=== PATIENT | female | born 1945 | race Caucasian/White ===

== ENCOUNTER 2018-04-04 11:27 | Emergency (ER) | payer MEDICARE, MEDICAID ==
[~2018-04-04] VITALS: Ht 147.3 cm; Wt 62.5 kg
[2018-04-04 13:35] LABS: BASOPHILS % 0.6 % (0.0-2.0); EOSINOPHILS % 2.2 % (0.0-5.0); HEMATOCRIT. 28.2 % (36.0-48.0); HEMOGLOBIN. 9.8 g/dL (12.0-16.0); LYMPHOCYTES % 31.7 % (20.0-50.0); MEAN CORPUSCULAR HEMOGLOBIN 31.3 pg (28.0-32.0); MEAN CORPUSCULAR VOLUME 89.9 fL (81.0-99.0); MEAN PLATELET VOLUME 7.7 fl (7.4-10.4); MONOCYTES % 6.7 % (2.0-8.0); NEUTROPHILS % 58.8 % (40.0-76.0); PLATELET 282 x1000/uL (130-400); RED BLOOD CELL COUNT 3.14 mill/uL (4.2-5.4); RED CELL DISTRIBUTION WIDTH 14.3 % (11.6-14.6)
[2018-04-04 13:43] LABS: PARTIAL THROMBOPLASTIN TIME 29.2 sec (23.4-31.0); PROTHROMBIN TIME 10.2 sec (9.1-11.1)
[2018-04-04 13:46] LABS: CHLORIDE 106 mEq/L (98-107)
[2018-04-04 18:35] VITALS: BP 160/67
== END 2018-04-04 18:38 | disposition home or self-care (01) ==
LOC: ER 13:10 → EDBEDREQ 13:14 → ER 18:38 → CANBEDREQ 18:45
DX: D64.9 Anemia, unspecified (principal); N28.9 Disorder of kidney and ureter, unspecified; R53.1 Weakness; R06.02 Shortness of breath; E11.9 Type 2 diabetes mellitus without complications; I10 Essential (primary) hypertension; Z98.890 Other specified postprocedural states
CPT/HCPCS: 36415; 71045; 83880; 84484; 86850; 86900; 93005; 99285

== ENCOUNTER 2022-12-24 21:10 | Inpatient (IN) | payer MEDICARE, MEDICAID ==
[~2022-12-24] VITALS: Ht 152.4 cm; Wt 61.2 kg
[~2022-12-24 21:10] MED LIST: ASPI-1160 MT; ATOR-2 PO; CARV3.1242 PO; COR3 PO; FURO80TA3 MT; INSU100I24 SQ; ISOS30TA91 MT; OMEP20CA14 PO; PLET5 MT; SITA25TA3 MT; T3 PO
[2022-12-24 21:15] VITALS: BP 130/73; PULSE 76; RESP 20; TEMP 97.7
[2022-12-24 22:00] VITALS: BP 130/73; PULSE 76; RESP 20; TEMP 97.7
[2022-12-24] MEDS ORDERED: MORPHINE SULFATE 2 MG/ML CPJ (NOT FOR IM USE) IV PRN (23:45)
[2022-12-25] MEDS ORDERED: ONDANSETRON HCL 4MG/2ML INJ IV PRN
[2022-12-25] MEDS ORDERED: DEXTROSE 50% WATER 50ML SYRINGE IV PRN
[2022-12-25] MEDS ORDERED: NALOXONE HCL 0.4MG/ML VIAL IV PRN (00:15)
[2022-12-25] MEDS ORDERED: SODIUM CHLORIDE 0.9% 250 ML IV NR ×2 (00:15→22:50)
[2022-12-25] MEDS: BLOOD SUGAR DIAGNOSTIC STRIP TEST SCH ×4 (06:01→21:25)
[2022-12-25] MEDS: INSULIN LISPRO 100 UNITS/ML SUBCUT SCH ×5 (06:07→21:00)
[2022-12-25 08:00] VITALS: BP 136/51; PULSE 77; RESP 17; TEMP 97.6
[2022-12-25 08:16] LABS: CHLORIDE 106 mEq/L (98-107); INDEX HEMOLYSI 1 (1-3); INDEX ICTERIC 1 (1-4); INDEX LIPEMIC 1 (1-3); POTASSIUM 4.3 mEq/L (3.5-5.1); SODIUM 135 mEq/L (136-145)
[2022-12-25 08:27] LABS: ALANINE AMINOTRANSFERASE 18 IU/L (13-61); ALBUMIN 1.7 g/dL (3.4-5.0); ASPARTATE AMINOTRANSFERASE 32 IU/L (15-37); BILIRUBIN TOTAL 0.9 mg/dL (0.1-1.0); CALCIUM 8.3 mg/dL (8.5-10.1); CARBON DIOXIDE 25 mEq/L (21-32); CREATININE 2.5 mg/dL (0.6-1.3); GLUCOSE 153 mg/dL (70-105); PROTEIN TOTAL 6.3 g/dL (6.0-8.3); UREA NITROGEN BLOOD 37 mg/dL (7-21)
[2022-12-25 08:30] LABS: BASOPHILS % 1.4 % (0.0-2.0); DIFFERENTIAL COMMENT 0; EOSINOPHILS % 1.5 % (0.0-5.0); HEMATOCRIT. 24.4 % (36.0-48.0); HEMOGLOBIN. 8.6 g/dL (12.0-16.0); LYMPHOCYTES % 14.6 % (20.0-50.0); MEAN CORPUSCULAR HEMOGLOBIN 36.2 pg (28.0-32.0); MEAN CORPUSCULAR HGB CONC 35.3 g/dL (31.0-37.0); MEAN CORPUSCULAR VOLUME 102.7 fL (81.0-99.0); MEAN PLATELET VOLUME 7.8 fl (7.4-10.4); MONOCYTES % 10.8 % (2.0-8.0); NEUTROPHILS % 71.7 % (40.0-76.0); PLATELET 322 x1000/uL (130-400); RED BLOOD CELL COUNT 2.38 mill/uL (4.2-5.4); RED CELL DISTRIBUTION WIDTH 20.7 % (11.6-14.6); WHITE BLOOD COUNT 6.7 x1000/uL (4.5-11.0)
[2022-12-25] MEDS ORDERED: HEPARIN 100 UNITS/1 ML VIAL IVF PRN (09:00)
[2022-12-25] MEDS ORDERED: ASCORBIC ACID 250 MG TABLET PO SCH (09:00)
[2022-12-25] MEDS: ZINC SULFATE 220 MG ( 50 ) CAPSULE PO SCH (09:19)
[2022-12-25] MEDS: FOLIC ACID/VITAMIN B COMP W-C TABLET PO SCH (09:19)
[2022-12-25] MEDS: DOCUSATE SODIUM 100MG CAPSULE PO SCH (09:20)
[2022-12-25] MEDS ORDERED: ASCORBIC ACID 500 MG TABLET PO NR (10:00)
[2022-12-25] MEDS: ASPIRIN 81MG TABLET PO SCH (10:25)
[2022-12-25] MEDS: INSULIN GLARGINE 100 UNITS/ML SUBCUT SCH (10:57)
[2022-12-25] MEDS ORDERED: ONDANSETRON HCL 4MG TABLET PO PRN (11:30)
[2022-12-25 20:00] VITALS: BP_SYST 125; BP_SYST 159; BP_DIAS 53; BP_DIAS 79; PULSE 68; RESP 20; TEMP 97.5; TEMP 97.7
[2022-12-25] MEDS ORDERED: GABAPENTIN 300MG CAPSULE PO SCH (21:00)
[2022-12-25] MEDS ORDERED: EPOETIN ALFA-EPBX 4,000 UNIT/ML VIAL SUBCUT SCH ×2 (21:00)
[2022-12-25] MEDS: GABAPENTIN 100MG CAPSULE PO SCH (21:04)
[2022-12-25] MEDS: FAMOTIDINE 20MG TABLET PO SCH (21:04)
[2022-12-25] MEDS: EPOETIN ALFA-EPBX 4,000 UNIT/ML VIAL SUBCUT SCH (21:09)
[2022-12-26] VITALS (12 sets, daily range): BP systolic 90–142; BP diastolic 41–68; PULSE 67–88; RESP 16–18; TEMP 96.7–97.7
[2022-12-26] MEDS: BLOOD SUGAR DIAGNOSTIC STRIP TEST SCH ×4 (05:18→21:00)
[2022-12-26 06:24] LABS: BASOPHILS % 1.7 % (0.0-2.0); DIFFERENTIAL COMMENT 0; EOSINOPHILS % 3.6 % (0.0-5.0); HEMATOCRIT. 26.8 % (36.0-48.0); HEMOGLOBIN. 9.4 g/dL (12.0-16.0); LYMPHOCYTES % 21.1 % (20.0-50.0); MEAN CORPUSCULAR VOLUME 103.1 fL (81.0-99.0); MEAN PLATELET VOLUME 7.9 fl (7.4-10.4); MONOCYTES % 13.6 % (2.0-8.0); PLATELET 331 x1000/uL (130-400); RED CELL DISTRIBUTION WIDTH 20.9 % (11.6-14.6); WHITE BLOOD COUNT 6.3 x1000/uL (4.5-11.0)
[2022-12-26 06:38] LABS: POTASSIUM 4.3 mEq/L (3.5-5.1)
[2022-12-26 06:45] LABS: CALCIUM 8.1 mg/dL (8.5-10.1); CREATININE 3.2 mg/dL (0.6-1.3)
[2022-12-26] MEDS: FOLIC ACID/VITAMIN B COMP W-C TABLET PO SCH (08:10)
[2022-12-26] MEDS: ZINC SULFATE 220 MG ( 50 ) CAPSULE PO SCH (08:10)
[2022-12-26] MEDS: DOCUSATE SODIUM 100MG CAPSULE PO SCH (08:10)
[2022-12-26] MEDS: ASCORBIC ACID 250 MG TABLET PO SCH (08:10)
[2022-12-26] MEDS: ASPIRIN 81MG TABLET PO SCH (08:10)
[2022-12-26] MEDS: INSULIN LISPRO 100 UNITS/ML SUBCUT SCH ×4 (08:37→21:00)
[2022-12-26] MEDS: INSULIN GLARGINE 100 UNITS/ML SUBCUT SCH (10:35)
[2022-12-26 17:49] LABS: HEPATITIS B SURFACE ANTIGEN NEGATIVE
[2022-12-26 18:17] LABS: HEPATITIS B CORE AB IGM NEGATIVE; HEPATITIS C VIR.AB 0.13 INDEXVAL (0.00-0.80)
[2022-12-26 18:18] LABS: HEPATITIS A AB IGM NEGATIVE (NEGATIVE)
[2022-12-26] MEDS: GABAPENTIN 100MG CAPSULE PO SCH (21:27)
[2022-12-26] MEDS: ACETAMINOPHEN 325MG TABLET PO PRN (21:27)
[2022-12-26] MEDS: LOPERAMIDE HCL 2MG CAPSULE PO PRN (21:58)
[2022-12-27] MEDS: VANCOMYCIN 1000MG/20ML ORAL SOLN PO SCH ×5 (06:19→17:49)
[2022-12-27] MEDS: BLOOD SUGAR DIAGNOSTIC STRIP TEST SCH ×2 (06:23→17:00)
[2022-12-27 08:00] VITALS: BP 126/52; PULSE 69; RESP 18; TEMP 96.8
[2022-12-27] MEDS: ASPIRIN 81MG TABLET PO SCH (08:37)
[2022-12-27] MEDS: ZINC SULFATE 220 MG ( 50 ) CAPSULE PO SCH (08:37)
[2022-12-27] MEDS: FOLIC ACID/VITAMIN B COMP W-C TABLET PO SCH (08:37)
[2022-12-27] MEDS: ASCORBIC ACID 250 MG TABLET PO SCH (08:37)
[2022-12-27] MEDS: INSULIN GLARGINE 100 UNITS/ML SUBCUT SCH (10:29)
[2022-12-27] MEDS: INSULIN LISPRO 100 UNITS/ML SUBCUT SCH (17:00)
[2022-12-27 20:00] VITALS: BP 111/43; PULSE 68; RESP 14; TEMP 97.1
[2022-12-27] MEDS: FAMOTIDINE 20MG TABLET PO SCH (21:53)
[2022-12-27] MEDS: GABAPENTIN 100MG CAPSULE PO SCH (21:54)
[2022-12-28] VITALS (10 sets, daily range): BP systolic 108–151; BP diastolic 44–120; PULSE 65–96; RESP 17–20; TEMP 97–97.8
[2022-12-28] MEDS: VANCOMYCIN 1000MG/20ML ORAL SOLN PO SCH ×4 (06:21→17:43)
[2022-12-28 06:52] LABS: CALCIUM 7.7 mg/dL (8.5-10.1); POTASSIUM 4.6 mEq/L (3.5-5.1)
[2022-12-28 06:55] LABS: BASOPHILS % 1.2 % (0.0-2.0); DIFFERENTIAL COMMENT 0; EOSINOPHILS % 2.2 % (0.0-5.0); HEMATOCRIT. 24.7 % (36.0-48.0); HEMOGLOBIN. 8.7 g/dL (12.0-16.0); LYMPHOCYTES % 19.8 % (20.0-50.0); MEAN CORPUSCULAR HEMOGLOBIN 36.1 pg (28.0-32.0); MEAN CORPUSCULAR HGB CONC 35.1 g/dL (31.0-37.0); MEAN CORPUSCULAR VOLUME 102.9 fL (81.0-99.0); MEAN PLATELET VOLUME 7.8 fl (7.4-10.4); MONOCYTES % 10.4 % (2.0-8.0); NEUTROPHILS % 66.4 % (40.0-76.0); PLATELET 288 x1000/uL (130-400); RED BLOOD CELL COUNT 2.41 mill/uL (4.2-5.4); RED CELL DISTRIBUTION WIDTH 20.7 % (11.6-14.6); WHITE BLOOD COUNT 6.9 x1000/uL (4.5-11.0)
[2022-12-28 06:58] LABS: CREATININE 3.4 mg/dL (0.6-1.3); PHOSPHORUS 4.2 mg/dL (2.5-4.9)
[2022-12-28] MEDS: INSULIN LISPRO 100 UNITS/ML SUBCUT SCH ×2 (08:00→17:38)
[2022-12-28] MEDS: BLOOD SUGAR DIAGNOSTIC STRIP TEST SCH ×2 (08:00→17:00)
[2022-12-28] MEDS: ZINC SULFATE 220 MG ( 50 ) CAPSULE PO SCH (08:57)
[2022-12-28] MEDS: ASCORBIC ACID 250 MG TABLET PO SCH (08:57)
[2022-12-28] MEDS: FOLIC ACID/VITAMIN B COMP W-C TABLET PO SCH (08:57)
[2022-12-28] MEDS: ASPIRIN 81MG TABLET PO SCH (08:57)
[2022-12-28] MEDS: INSULIN GLARGINE 100 UNITS/ML SUBCUT SCH (10:50)
[2022-12-28] MEDS: EPOETIN ALFA-EPBX 4,000 UNIT/ML VIAL SUBCUT SCH (21:21)
[2022-12-28] MEDS: GABAPENTIN 100MG CAPSULE PO SCH (21:21)
[2022-12-28] MEDS: TRAMADOL 50MG TABLET PO PRN (21:23)
[2022-12-29] MEDS: VANCOMYCIN 1000MG/20ML ORAL SOLN PO SCH ×4 (00:56→17:03)
[2022-12-29] MEDS: ACETAMINOPHEN 325MG TABLET PO PRN (01:43)
[2022-12-29] MEDS: BLOOD SUGAR DIAGNOSTIC STRIP TEST SCH ×2 (06:48→16:52)
[2022-12-29] MEDS: INSULIN LISPRO 100 UNITS/ML SUBCUT SCH ×2 (06:56→16:52)
[2022-12-29 08:00] VITALS: BP 127/52; PULSE 75; RESP 18; TEMP 97.8
[2022-12-29] MEDS: FOLIC ACID/VITAMIN B COMP W-C TABLET PO SCH (08:38)
[2022-12-29] MEDS: ASPIRIN 81MG TABLET PO SCH (08:38)
[2022-12-29] MEDS: ZINC SULFATE 220 MG ( 50 ) CAPSULE PO SCH (08:38)
[2022-12-29] MEDS: ASCORBIC ACID 250 MG TABLET PO SCH (08:38)
[2022-12-29] MEDS: INSULIN GLARGINE 100 UNITS/ML SUBCUT SCH (09:38)
[2022-12-29 20:00] VITALS: BP 116/46; PULSE 72; RESP 18; TEMP 99.7
[2022-12-29] MEDS: GABAPENTIN 100MG CAPSULE PO SCH (20:55)
[2022-12-29] MEDS: TRAMADOL 50MG TABLET PO PRN (20:56)
[2022-12-29] MEDS: FAMOTIDINE 20MG TABLET PO SCH (20:56)
[2022-12-30] VITALS (11 sets, daily range): BP systolic 95–131; BP diastolic 48–62; PULSE 64–72; RESP 16–18; TEMP 97–99
[2022-12-30] MEDS: VANCOMYCIN 1000MG/20ML ORAL SOLN PO SCH ×4 (02:50→18:19)
[2022-12-30] MEDS: BLOOD SUGAR DIAGNOSTIC STRIP TEST SCH ×2 (07:26→17:55)
[2022-12-30 07:28] LABS: POTASSIUM 4.7 mEq/L (3.5-5.1)
[2022-12-30 07:34] LABS: BASOPHILS % 1.1 % (0.0-2.0); DIFFERENTIAL COMMENT 0; EOSINOPHILS % 1.2 % (0.0-5.0); HEMATOCRIT. 26.4 % (36.0-48.0); LYMPHOCYTES % 16.8 % (20.0-50.0); MEAN CORPUSCULAR HEMOGLOBIN 34.6 pg (28.0-32.0); MEAN CORPUSCULAR VOLUME 101.9 fL (81.0-99.0); MEAN PLATELET VOLUME 7.7 fl (7.4-10.4); NEUTROPHILS % 71.9 % (40.0-76.0); PLATELET 281 x1000/uL (130-400); RED BLOOD CELL COUNT 2.59 mill/uL (4.2-5.4); RED CELL DISTRIBUTION WIDTH 21.1 % (11.6-14.6); WHITE BLOOD COUNT 8.8 x1000/uL (4.5-11.0)
[2022-12-30 07:36] LABS: CALCIUM 7.9 mg/dL (8.5-10.1); CREATININE 3.5 mg/dL (0.6-1.3); PHOSPHORUS 4.3 mg/dL (2.5-4.9)
[2022-12-30] MEDS: INSULIN LISPRO 100 UNITS/ML SUBCUT SCH ×2 (08:00→17:30)
[2022-12-30] MEDS: ACETAMINOPHEN 325MG TABLET PO PRN (10:32)
[2022-12-30] MEDS: ASCORBIC ACID 250 MG TABLET PO SCH (10:33)
[2022-12-30] MEDS: ZINC SULFATE 220 MG ( 50 ) CAPSULE PO SCH (10:33)
[2022-12-30] MEDS: FOLIC ACID/VITAMIN B COMP W-C TABLET PO SCH (10:33)
[2022-12-30] MEDS: ASPIRIN 81MG TABLET PO SCH (10:33)
[2022-12-30] MEDS: TRAMADOL 50MG TABLET PO PRN (18:32)
[2022-12-30] MEDS: GABAPENTIN 100MG CAPSULE PO SCH (23:14)
[2022-12-30] MEDS: EPOETIN ALFA-EPBX 4,000 UNIT/ML VIAL SUBCUT SCH (23:14)
[2022-12-31] MEDS: VANCOMYCIN 1000MG/20ML ORAL SOLN PO SCH ×4 (00:28→17:14)
[2022-12-31] MEDS: BLOOD SUGAR DIAGNOSTIC STRIP TEST SCH ×2 (06:33→17:13)
[2022-12-31] MEDS: INSULIN LISPRO 100 UNITS/ML SUBCUT SCH ×2 (06:34→17:00)
[2022-12-31 08:00] VITALS: BP 132/50; PULSE 71; RESP 18; TEMP 97.3
[2022-12-31] MEDS: FOLIC ACID/VITAMIN B COMP W-C TABLET PO SCH (08:41)
[2022-12-31] MEDS: ASPIRIN 81MG TABLET PO SCH (08:41)
[2022-12-31] MEDS: ASCORBIC ACID 250 MG TABLET PO SCH (08:41)
[2022-12-31] MEDS: ZINC SULFATE 220 MG ( 50 ) CAPSULE PO SCH (08:41)
[2022-12-31] MEDS: ACETAMINOPHEN 325MG TABLET PO PRN (09:10)
[2022-12-31 20:09] VITALS: BP 101/49; PULSE 91; RESP 20; TEMP 96.9
[2022-12-31] MEDS: GABAPENTIN 100MG CAPSULE PO SCH (20:52)
[2022-12-31] MEDS: FAMOTIDINE 20MG TABLET PO SCH (20:52)
[2023-01-01] VITALS (8 sets, daily range): BP systolic 109–138; BP diastolic 48–82; PULSE 62–82; RESP 16–20; TEMP 97.3–98.6
[2023-01-01] MEDS: BLOOD SUGAR DIAGNOSTIC STRIP TEST SCH ×2 (06:54→17:11)
[2023-01-01] MEDS: INSULIN LISPRO 100 UNITS/ML SUBCUT SCH ×2 (06:54→17:13)
[2023-01-01 08:02] LABS: BASOPHILS % 1.2 % (0.0-2.0); DIFFERENTIAL COMMENT 0; EOSINOPHILS % 1.8 % (0.0-5.0); HEMATOCRIT. 24.3 % (36.0-48.0); HEMOGLOBIN. 8.7 g/dL (12.0-16.0); LYMPHOCYTES % 19.3 % (20.0-50.0); MEAN CORPUSCULAR HEMOGLOBIN 36.6 pg (28.0-32.0); MEAN CORPUSCULAR HGB CONC 35.8 g/dL (31.0-37.0); MEAN CORPUSCULAR VOLUME 102.2 fL (81.0-99.0); MEAN PLATELET VOLUME 7.8 fl (7.4-10.4); MONOCYTES % 10.1 % (2.0-8.0); NEUTROPHILS % 67.6 % (40.0-76.0); PLATELET 268 x1000/uL (130-400); RED BLOOD CELL COUNT 2.37 mill/uL (4.2-5.4); RED CELL DISTRIBUTION WIDTH 19.4 % (11.6-14.6); WHITE BLOOD COUNT 7.5 x1000/uL (4.5-11.0)
[2023-01-01 08:40] LABS: POTASSIUM 4.6 mEq/L (3.5-5.1)
[2023-01-01 08:49] LABS: CALCIUM 7.9 mg/dL (8.5-10.1); CREATININE 3.5 mg/dL (0.6-1.3); PHOSPHORUS 4.5 mg/dL (2.5-4.9)
[2023-01-01] MEDS: ASCORBIC ACID 250 MG TABLET PO SCH (08:58)
[2023-01-01] MEDS: ZINC SULFATE 220 MG ( 50 ) CAPSULE PO SCH (08:58)
[2023-01-01] MEDS: ASPIRIN 81MG TABLET PO SCH (08:58)
[2023-01-01] MEDS: FOLIC ACID/VITAMIN B COMP W-C TABLET PO SCH (08:58)
[2023-01-01] MEDS ORDERED: NALOXONE HCL 0.4MG/ML VIAL IV PRN (14:00)
[2023-01-01] MEDS: ACETAMINOPHEN 325MG TABLET PO PRN (21:45)
[2023-01-01] MEDS: GABAPENTIN 100MG CAPSULE PO SCH (21:46)
[2023-01-01] MEDS: EPOETIN ALFA-EPBX 4,000 UNIT/ML VIAL SUBCUT SCH (21:47)
[2023-01-02 06:44] LABS: BASOPHILS % 1.8 % (0.0-2.0); DIFFERENTIAL COMMENT 0; EOSINOPHILS % 2.1 % (0.0-5.0); HEMOGLOBIN. 8.8 g/dL (12.0-16.0); LYMPHOCYTES % 15.8 % (20.0-50.0); MEAN CORPUSCULAR HEMOGLOBIN 36.3 pg (28.0-32.0); MEAN CORPUSCULAR HGB CONC 35.2 g/dL (31.0-37.0); MEAN CORPUSCULAR VOLUME 103.2 fL (81.0-99.0); MEAN PLATELET VOLUME 7.6 fl (7.4-10.4); MONOCYTES % 9.7 % (2.0-8.0); NEUTROPHILS % 70.6 % (40.0-76.0); PLATELET 258 x1000/uL (130-400); RED BLOOD CELL COUNT 2.42 mill/uL (4.2-5.4); RED CELL DISTRIBUTION WIDTH 19.4 % (11.6-14.6); WHITE BLOOD COUNT 6.7 x1000/uL (4.5-11.0)
[2023-01-02 07:07] LABS: POTASSIUM 3.7 mEq/L (3.5-5.1)
[2023-01-02 07:11] LABS: CREATININE 2.9 mg/dL (0.6-1.3); PHOSPHORUS 3.7 mg/dL (2.5-4.9)
[2023-01-02] MEDS: ACETAMINOPHEN 325MG TABLET PO PRN ×3 (07:43→22:17)
[2023-01-02] MEDS: BLOOD SUGAR DIAGNOSTIC STRIP TEST SCH ×2 (07:49→17:00)
[2023-01-02] MEDS: INSULIN LISPRO 100 UNITS/ML SUBCUT SCH ×2 (07:49→18:25)
[2023-01-02 08:00] VITALS: BP 136/50; PULSE 78; RESP 18; TEMP 98
[2023-01-02] MEDS: ASCORBIC ACID 250 MG TABLET PO SCH (09:00)
[2023-01-02] MEDS: FOLIC ACID/VITAMIN B COMP W-C TABLET PO SCH (09:35)
[2023-01-02] MEDS: ZINC SULFATE 220 MG ( 50 ) CAPSULE PO SCH (09:36)
[2023-01-02] MEDS: ASPIRIN 81MG TABLET PO SCH (09:36)
[2023-01-02 20:00] VITALS: BP 124/43; PULSE 67; RESP 17; TEMP 97
[2023-01-02] MEDS: FAMOTIDINE 20MG TABLET PO SCH (21:54)
[2023-01-02] MEDS: GABAPENTIN 100MG CAPSULE PO SCH (21:55)
[2023-01-03 06:25] LABS: BASOPHILS % 1.8 % (0.0-2.0); DIFFERENTIAL COMMENT 0; EOSINOPHILS % 2.5 % (0.0-5.0); HEMATOCRIT. 25.5 % (36.0-48.0); HEMOGLOBIN. 8.8 g/dL (12.0-16.0); LYMPHOCYTES % 19.1 % (20.0-50.0); MEAN CORPUSCULAR HGB CONC 34.6 g/dL (31.0-37.0); MEAN PLATELET VOLUME 7.4 fl (7.4-10.4); MONOCYTES % 10.5 % (2.0-8.0); NEUTROPHILS % 66.1 % (40.0-76.0); PLATELET 265 x1000/uL (130-400); RED BLOOD CELL COUNT 2.45 mill/uL (4.2-5.4); RED CELL DISTRIBUTION WIDTH 19.8 % (11.6-14.6); WHITE BLOOD COUNT 6.7 x1000/uL (4.5-11.0)
[2023-01-03 06:33] LABS: POTASSIUM 3.7 mEq/L (3.5-5.1)
[2023-01-03 06:39] LABS: CALCIUM 7.9 mg/dL (8.5-10.1); CREATININE 3.6 mg/dL (0.6-1.3); PHOSPHORUS 4.7 mg/dL (2.5-4.9)
[2023-01-03] MEDS: ACETAMINOPHEN 325MG TABLET PO PRN (07:33)
[2023-01-03 07:52] VITALS: BP 125/50; PULSE 67; RESP 18; TEMP 97.5
[2023-01-03] MEDS: BLOOD SUGAR DIAGNOSTIC STRIP TEST SCH ×2 (08:00→17:13)
[2023-01-03] MEDS: INSULIN LISPRO 100 UNITS/ML SUBCUT SCH ×2 (08:00→17:39)
[2023-01-03] MEDS: FOLIC ACID/VITAMIN B COMP W-C TABLET PO SCH (09:14)
[2023-01-03] MEDS: ZINC SULFATE 220 MG ( 50 ) CAPSULE PO SCH (09:14)
[2023-01-03] MEDS: ASCORBIC ACID 250 MG TABLET PO SCH (09:14)
[2023-01-03] MEDS: ASPIRIN 81MG TABLET PO SCH (09:14)
[2023-01-03] MEDS: LOPERAMIDE HCL 2MG CAPSULE PO PRN (19:17)
[2023-01-03 20:18] VITALS: BP 101/49; PULSE 76; RESP 17; TEMP 97.1
[2023-01-03] MEDS: GABAPENTIN 100MG CAPSULE PO SCH (21:58)
[2023-01-04] VITALS (8 sets, daily range): BP systolic 117–131; BP diastolic 48–61; PULSE 62–74; RESP 16–19; TEMP 97.6–98.8
[2023-01-04 07:04] LABS: POTASSIUM 4.1 mEq/L (3.5-5.1)
[2023-01-04 07:12] LABS: CALCIUM 7.9 mg/dL (8.5-10.1); CREATININE 4.4 mg/dL (0.6-1.3)
[2023-01-04] MEDS: INSULIN LISPRO 100 UNITS/ML SUBCUT SCH ×2 (07:25→17:40)
[2023-01-04] MEDS: BLOOD SUGAR DIAGNOSTIC STRIP TEST SCH ×2 (08:02→17:12)
[2023-01-04] MEDS: ZINC SULFATE 220 MG ( 50 ) CAPSULE PO SCH (08:33)
[2023-01-04] MEDS: FOLIC ACID/VITAMIN B COMP W-C TABLET PO SCH (08:33)
[2023-01-04] MEDS: ASPIRIN 81MG TABLET PO SCH (08:33)
[2023-01-04] MEDS: ASCORBIC ACID 250 MG TABLET PO SCH (08:34)
[2023-01-04] MEDS: TRAMADOL 50MG TABLET PO PRN (08:48)
[2023-01-04] MEDS: FAMOTIDINE 20MG TABLET PO SCH (21:28)
[2023-01-04] MEDS: EPOETIN ALFA 4000UNITS/ML VIAL SUBCUT SCH (21:28)
[2023-01-04] MEDS: GABAPENTIN 100MG CAPSULE PO SCH (21:28)
[2023-01-04] MEDS: LOPERAMIDE HCL 2MG CAPSULE PO PRN (22:29)
[2023-01-04] MEDS: ACETAMINOPHEN 325MG TABLET PO PRN (23:37)
[2023-01-05] MEDS: BLOOD SUGAR DIAGNOSTIC STRIP TEST SCH ×2 (07:35→17:36)
[2023-01-05] MEDS: INSULIN LISPRO 100 UNITS/ML SUBCUT SCH ×2 (07:35→18:15)
[2023-01-05 08:00] VITALS: BP 125/48; PULSE 70; RESP 18; TEMP 97.3
[2023-01-05] MEDS: ZINC SULFATE 220 MG ( 50 ) CAPSULE PO SCH (09:37)
[2023-01-05] MEDS: FOLIC ACID/VITAMIN B COMP W-C TABLET PO SCH (09:37)
[2023-01-05] MEDS: ASPIRIN 81MG TABLET PO SCH (09:37)
[2023-01-05] MEDS: ASCORBIC ACID 250 MG TABLET PO SCH (09:38)
[2023-01-05 19:52] VITALS: BP 101/48; PULSE 56; RESP 17; TEMP 96.9
[2023-01-05] MEDS: GABAPENTIN 100MG CAPSULE PO SCH (20:17)
[2023-01-06] VITALS (11 sets, daily range): BP systolic 112–133; BP diastolic 49–59; PULSE 55–76; RESP 16–18; TEMP 97.1–98.4
[2023-01-06 06:11] LABS: BASOPHILS % 1.1 % (0.0-2.0); DIFFERENTIAL COMMENT 0; EOSINOPHILS % 1.4 % (0.0-5.0); HEMATOCRIT. 27.1 % (36.0-48.0); LYMPHOCYTES % 21.7 % (20.0-50.0); MEAN CORPUSCULAR HEMOGLOBIN 34.2 pg (28.0-32.0); MEAN CORPUSCULAR HGB CONC 33.1 g/dL (31.0-37.0); MEAN PLATELET VOLUME 7.2 fl (7.4-10.4); MONOCYTES % 9.7 % (2.0-8.0); NEUTROPHILS % 66.1 % (40.0-76.0); PLATELET 261 x1000/uL (130-400); RED BLOOD CELL COUNT 2.63 mill/uL (4.2-5.4); RED CELL DISTRIBUTION WIDTH 19.8 % (11.6-14.6); WHITE BLOOD COUNT 7.4 x1000/uL (4.5-11.0)
[2023-01-06] MEDS: INSULIN LISPRO 100 UNITS/ML SUBCUT SCH ×2 (08:00→16:08)
[2023-01-06] MEDS: BLOOD SUGAR DIAGNOSTIC STRIP TEST SCH ×2 (08:00→16:09)
[2023-01-06] MEDS: ASPIRIN 81MG TABLET PO SCH (08:26)
[2023-01-06] MEDS: ASCORBIC ACID 250 MG TABLET PO SCH (08:27)
[2023-01-06] MEDS: FOLIC ACID/VITAMIN B COMP W-C TABLET PO SCH (08:27)
[2023-01-06] MEDS: ZINC SULFATE 220 MG ( 50 ) CAPSULE PO SCH (08:27)
[2023-01-06 10:57] LABS: POTASSIUM 4.4 mEq/L (3.5-5.1)
[2023-01-06 11:02] LABS: CALCIUM 8.3 mg/dL (8.5-10.1); CREATININE 4.3 mg/dL (0.6-1.3); PHOSPHORUS 4.6 mg/dL (2.5-4.9)
[2023-01-06] MEDS: FAMOTIDINE 20MG TABLET PO SCH (21:41)
[2023-01-06] MEDS: GABAPENTIN 100MG CAPSULE PO SCH (21:41)
[2023-01-06] MEDS: EPOETIN ALFA 4000UNITS/ML VIAL SUBCUT SCH (21:42)
[2023-01-07] MEDS: BLOOD SUGAR DIAGNOSTIC STRIP TEST SCH ×2 (07:32→17:44)
[2023-01-07] MEDS: INSULIN LISPRO 100 UNITS/ML SUBCUT SCH ×2 (07:32→17:00)
[2023-01-07] MEDS: ASPIRIN 81MG TABLET PO SCH (07:56)
[2023-01-07] MEDS: FOLIC ACID/VITAMIN B COMP W-C TABLET PO SCH (07:56)
[2023-01-07] MEDS: ASCORBIC ACID 250 MG TABLET PO SCH (07:56)
[2023-01-07] MEDS: ZINC SULFATE 220 MG ( 50 ) CAPSULE PO SCH (07:56)
[2023-01-07 08:00] VITALS: BP 132/51; PULSE 74; RESP 18; TEMP 97.7
[2023-01-07] MEDS: ACETAMINOPHEN 325MG TABLET PO PRN (09:51)
[2023-01-07] MEDS: CEPHALEXIN 250MG CAPSULE PO SCH ×2 (11:30→23:09)
[2023-01-07] MEDS ORDERED: NALOXONE HCL 0.4MG/ML VIAL IV PRN (15:30)
[2023-01-07 20:00] VITALS: BP 135/50; PULSE 75; RESP 19; TEMP 100.8
[2023-01-07] MEDS: LINEZOLID 600MG TABLET PO SCH (21:12)
[2023-01-07] MEDS: GABAPENTIN 100MG CAPSULE PO SCH (21:15)
[2023-01-07] MEDS: TRAMADOL 50MG TABLET PO PRN (21:15)
[2023-01-08 08:00] VITALS: BP 136/52; PULSE 74; RESP 18; TEMP 97.8
[2023-01-08] MEDS: INSULIN LISPRO 100 UNITS/ML SUBCUT SCH ×2 (08:00→17:00)
[2023-01-08] MEDS: BLOOD SUGAR DIAGNOSTIC STRIP TEST SCH ×2 (08:00→17:00)
[2023-01-08 08:30] LABS: BASOPHILS % 1.2 % (0.0-2.0); DIFFERENTIAL COMMENT 0; EOSINOPHILS % 1.6 % (0.0-5.0); HEMATOCRIT. 26.2 % (36.0-48.0); HEMOGLOBIN. 9.1 g/dL (12.0-16.0); LYMPHOCYTES % 22.1 % (20.0-50.0); MEAN CORPUSCULAR HEMOGLOBIN 35.5 pg (28.0-32.0); MEAN CORPUSCULAR HGB CONC 34.7 g/dL (31.0-37.0); MEAN CORPUSCULAR VOLUME 102.2 fL (81.0-99.0); MEAN PLATELET VOLUME 7.8 fl (7.4-10.4); MONOCYTES % 11.6 % (2.0-8.0); NEUTROPHILS % 63.5 % (40.0-76.0); PLATELET 291 x1000/uL (130-400); RED BLOOD CELL COUNT 2.56 mill/uL (4.2-5.4); WHITE BLOOD COUNT 6.9 x1000/uL (4.5-11.0)
[2023-01-08 08:43] LABS: CALCIUM 8.2 mg/dL (8.5-10.1); POTASSIUM 4.7 mEq/L (3.5-5.1)
[2023-01-08 08:48] LABS: CREATININE 4.2 mg/dL (0.6-1.3)
[2023-01-08] MEDS: ASCORBIC ACID 250 MG TABLET PO SCH (09:00)
[2023-01-08] MEDS: LINEZOLID 600MG TABLET PO SCH ×2 (09:00→20:41)
[2023-01-08] MEDS: ZINC SULFATE 220 MG ( 50 ) CAPSULE PO SCH (09:00)
[2023-01-08] MEDS: ASPIRIN 81MG TABLET PO SCH (09:00)
[2023-01-08] MEDS: FOLIC ACID/VITAMIN B COMP W-C TABLET PO SCH (09:00)
[2023-01-08] MEDS: CEPHALEXIN 250MG CAPSULE PO SCH (11:30)
[2023-01-08] MEDS: INSULIN GLARGINE 100 UNITS/ML SUBCUT SCH (13:00)
[2023-01-08 17:00] VITALS: BP 133/60; PULSE 73; RESP 16; TEMP 98.3
[2023-01-08 18:00] VITALS: BP 130/59; PULSE 79; RESP 16
[2023-01-08 19:00] VITALS: BP 118/52; PULSE 69; RESP 16
[2023-01-08 20:00] VITALS: BP 134/54; PULSE 70; RESP 18; TEMP 97.9
[2023-01-08] MEDS: GABAPENTIN 100MG CAPSULE PO SCH (20:41)
[2023-01-08] MEDS: ACETAMINOPHEN 325MG TABLET PO PRN (20:41)
[2023-01-08] MEDS: FAMOTIDINE 20MG TABLET PO SCH (20:42)
[2023-01-08] MEDS ORDERED: EPOETIN ALFA-EPBX 10,000 UNIT/ML VIAL SUBCUT SCH (21:00)
[2023-01-08 21:04] LABS: HEPATITIS B SURFACE AB 50.8 mIU/mL
[2023-01-08 21:15] LABS: HEPATITIS B SURFACE ANTIGEN NEGATIVE
[2023-01-08 21:43] LABS: HEPATITIS B CORE AB IGM NEGATIVE
[2023-01-08 21:45] LABS: HEPATITIS A AB IGM NEGATIVE (NEGATIVE)
[2023-01-09] MEDS: CEPHALEXIN 250MG CAPSULE PO SCH ×3 (00:02→23:25)
[2023-01-09] MEDS: INSULIN LISPRO 100 UNITS/ML SUBCUT SCH ×2 (06:57→17:00)
[2023-01-09] MEDS: BLOOD SUGAR DIAGNOSTIC STRIP TEST SCH ×2 (06:57→17:00)
[2023-01-09 08:00] VITALS: BP 131/49; PULSE 68; RESP 17; TEMP 97.3
[2023-01-09] MEDS: FOLIC ACID/VITAMIN B COMP W-C TABLET PO SCH (08:54)
[2023-01-09] MEDS: ASPIRIN 81MG TABLET PO SCH (08:54)
[2023-01-09] MEDS: ASCORBIC ACID 250 MG TABLET PO SCH (08:54)
[2023-01-09] MEDS: LINEZOLID 600MG TABLET PO SCH ×2 (08:54→20:48)
[2023-01-09] MEDS: ZINC SULFATE 220 MG ( 50 ) CAPSULE PO SCH (08:54)
[2023-01-09] MEDS: INSULIN GLARGINE 100 UNITS/ML SUBCUT SCH (11:38)
[2023-01-09] MEDS: ACETAMINOPHEN 325MG TABLET PO PRN (17:20)
[2023-01-09 19:51] VITALS: BP 135/50; PULSE 73; RESP 20; TEMP 98.3
[2023-01-09] MEDS: GABAPENTIN 100MG CAPSULE PO SCH (20:48)
[2023-01-10] MEDS: ACETAMINOPHEN 325MG TABLET PO PRN ×3 (01:16→22:53)
[2023-01-10] MEDS: INSULIN LISPRO 100 UNITS/ML SUBCUT SCH ×2 (06:33→17:00)
[2023-01-10] MEDS: BLOOD SUGAR DIAGNOSTIC STRIP TEST SCH ×2 (06:33→17:00)
[2023-01-10 08:00] VITALS: BP 113/50; PULSE 66; RESP 18; TEMP 97.5
[2023-01-10] MEDS: FOLIC ACID/VITAMIN B COMP W-C TABLET PO SCH (08:49)
[2023-01-10] MEDS: ASPIRIN 81MG TABLET PO SCH (08:49)
[2023-01-10] MEDS: LINEZOLID 600MG TABLET PO SCH ×2 (08:49→20:57)
[2023-01-10] MEDS: ASCORBIC ACID 250 MG TABLET PO SCH (08:49)
[2023-01-10] MEDS: ZINC SULFATE 220 MG ( 50 ) CAPSULE PO SCH (08:49)
[2023-01-10] MEDS: INSULIN GLARGINE 100 UNITS/ML SUBCUT SCH (10:00)
[2023-01-10] MEDS: CEPHALEXIN 250MG CAPSULE PO SCH ×2 (10:48→22:53)
[2023-01-10] MEDS: LOPERAMIDE HCL 2MG CAPSULE PO PRN ×2 (10:49→21:00)
[2023-01-10] MEDS: TRAMADOL 50MG TABLET PO PRN (10:50)
[2023-01-10 20:00] VITALS: BP 137/50; PULSE 71; RESP 19; TEMP 97.9
[2023-01-10] MEDS: GABAPENTIN 100MG CAPSULE PO SCH (20:57)
[2023-01-10] MEDS: FAMOTIDINE 20MG TABLET PO SCH (20:58)
[2023-01-11] VITALS (10 sets, daily range): BP systolic 117–145; BP diastolic 42–56; PULSE 64–80; RESP 18–20; TEMP 97–98.2
[2023-01-11 06:08] LABS: DIFFERENTIAL COMMENT 0; EOSINOPHILS % 3.5 % (0.0-5.0); HEMATOCRIT. 27.3 % (36.0-48.0); HEMOGLOBIN. 9.2 g/dL (12.0-16.0); LYMPHOCYTES % 24.8 % (20.0-50.0); MEAN CORPUSCULAR HEMOGLOBIN 34.3 pg (28.0-32.0); MEAN CORPUSCULAR HGB CONC 33.6 g/dL (31.0-37.0); MEAN PLATELET VOLUME 7.4 fl (7.4-10.4); MONOCYTES % 10.4 % (2.0-8.0); NEUTROPHILS % 60.3 % (40.0-76.0); PLATELET 315 x1000/uL (130-400); RED BLOOD CELL COUNT 2.68 mill/uL (4.2-5.4); RED CELL DISTRIBUTION WIDTH 20.2 % (11.6-14.6); WHITE BLOOD COUNT 6.3 x1000/uL (4.5-11.0)
[2023-01-11] MEDS: BLOOD SUGAR DIAGNOSTIC STRIP TEST SCH ×2 (06:37→17:00)
[2023-01-11] MEDS: INSULIN LISPRO 100 UNITS/ML SUBCUT SCH ×2 (06:38→17:00)
[2023-01-11] MEDS: ACETAMINOPHEN 325MG TABLET PO PRN ×3 (07:12→20:15)
[2023-01-11 07:32] LABS: CALCIUM 8.2 mg/dL (8.5-10.1); POTASSIUM 4.8 mEq/L (3.5-5.1)
[2023-01-11 07:35] LABS: CREATININE 4.6 mg/dL (0.6-1.3); PHOSPHORUS 4.6 mg/dL (2.5-4.9)
[2023-01-11] MEDS: ASCORBIC ACID 250 MG TABLET PO SCH (08:34)
[2023-01-11] MEDS: ZINC SULFATE 220 MG ( 50 ) CAPSULE PO SCH (08:34)
[2023-01-11] MEDS: ASPIRIN 81MG TABLET PO SCH (08:34)
[2023-01-11] MEDS: FOLIC ACID/VITAMIN B COMP W-C TABLET PO SCH (08:34)
[2023-01-11] MEDS: LINEZOLID 600MG TABLET PO SCH ×2 (08:35→21:26)
[2023-01-11] MEDS: INSULIN GLARGINE 100 UNITS/ML SUBCUT SCH (10:00)
[2023-01-11] MEDS: CEPHALEXIN 250MG CAPSULE PO SCH (12:11)
[2023-01-11] MEDS: TRAMADOL 50MG TABLET PO PRN (15:49)
[2023-01-11] MEDS ORDERED: LINE600T14 MT ×2 (20:18)
[2023-01-11] MEDS ORDERED: CEPH500C2 MT ×2 (20:18)
[2023-01-11] MEDS: GABAPENTIN 100MG CAPSULE PO SCH (21:25)
[2023-01-11] MEDS: EPOETIN ALFA 4000UNITS/ML VIAL SUBCUT SCH (21:27)
[2023-01-12] MEDS: CEPHALEXIN 250MG CAPSULE PO SCH ×3 (00:14→23:09)
[2023-01-12] MEDS: TRAMADOL 50MG TABLET PO PRN (05:06)
[2023-01-12 08:00] VITALS: BP 119/44; PULSE 82; RESP 17; TEMP 96.9
[2023-01-12] MEDS: INSULIN LISPRO 100 UNITS/ML SUBCUT SCH ×2 (08:00→17:00)
[2023-01-12] MEDS: BLOOD SUGAR DIAGNOSTIC STRIP TEST SCH ×2 (08:00→17:00)
[2023-01-12] MEDS: ASCORBIC ACID 250 MG TABLET PO SCH (09:37)
[2023-01-12] MEDS: LINEZOLID 600MG TABLET PO SCH ×2 (09:37→20:34)
[2023-01-12] MEDS: ZINC SULFATE 220 MG ( 50 ) CAPSULE PO SCH (09:37)
[2023-01-12] MEDS: FOLIC ACID/VITAMIN B COMP W-C TABLET PO SCH (09:37)
[2023-01-12] MEDS: ASPIRIN 81MG TABLET PO SCH (09:37)
[2023-01-12] MEDS: ACETAMINOPHEN 325MG TABLET PO PRN ×2 (09:38→16:08)
[2023-01-12] MEDS: INSULIN GLARGINE 100 UNITS/ML SUBCUT SCH (10:00)
[2023-01-12] MEDS: FLUCONAZOLE 100MG TABLET PO SCH (12:10)
[2023-01-12 20:06] VITALS: BP 101/51; PULSE 87; RESP 17; TEMP 96.9
[2023-01-12] MEDS: FAMOTIDINE 20MG TABLET PO SCH (20:32)
[2023-01-12] MEDS: GABAPENTIN 100MG CAPSULE PO SCH (20:34)
[2023-01-13] VITALS (8 sets, daily range): BP systolic 92–138; BP diastolic 45–60; PULSE 72–83; RESP 16–20; TEMP 96.4–98.6
[2023-01-13 06:34] LABS: DIFFERENTIAL COMMENT 0; EOSINOPHILS % 2.6 % (0.0-5.0); HEMATOCRIT. 26.7 % (36.0-48.0); HEMOGLOBIN. 8.8 g/dL (12.0-16.0); LYMPHOCYTES % 24.1 % (20.0-50.0); MEAN CORPUSCULAR HEMOGLOBIN 33.8 pg (28.0-32.0); MEAN CORPUSCULAR HGB CONC 33.2 g/dL (31.0-37.0); MEAN CORPUSCULAR VOLUME 101.8 fL (81.0-99.0); MEAN PLATELET VOLUME 7.2 fl (7.4-10.4); MONOCYTES % 11.1 % (2.0-8.0); NEUTROPHILS % 61.2 % (40.0-76.0); PLATELET 302 x1000/uL (130-400); RED BLOOD CELL COUNT 2.62 mill/uL (4.2-5.4); RED CELL DISTRIBUTION WIDTH 20.3 % (11.6-14.6); WHITE BLOOD COUNT 6.7 x1000/uL (4.5-11.0)
[2023-01-13 07:23] LABS: POTASSIUM 4.6 mEq/L (3.5-5.1)
[2023-01-13 07:28] LABS: CALCIUM 8.4 mg/dL (8.5-10.1); CREATININE 3.8 mg/dL (0.6-1.3); PHOSPHORUS 4.2 mg/dL (2.5-4.9)
[2023-01-13] MEDS: INSULIN LISPRO 100 UNITS/ML SUBCUT SCH ×2 (08:00→17:13)
[2023-01-13] MEDS: BLOOD SUGAR DIAGNOSTIC STRIP TEST SCH ×2 (08:43→17:00)
[2023-01-13] MEDS: LINEZOLID 600MG TABLET PO SCH ×2 (08:43→20:56)
[2023-01-13] MEDS: FOLIC ACID/VITAMIN B COMP W-C TABLET PO SCH (08:44)
[2023-01-13] MEDS: ASCORBIC ACID 250 MG TABLET PO SCH (08:44)
[2023-01-13] MEDS: ZINC SULFATE 220 MG ( 50 ) CAPSULE PO SCH (08:44)
[2023-01-13] MEDS: ASPIRIN 81MG TABLET PO SCH (08:44)
[2023-01-13] MEDS: FLUCONAZOLE 100MG TABLET PO SCH (10:04)
[2023-01-13] MEDS: CEPHALEXIN 250MG CAPSULE PO SCH ×2 (10:05→23:42)
[2023-01-13] MEDS: INSULIN GLARGINE 100 UNITS/ML SUBCUT SCH (10:08)
[2023-01-13] MEDS: ACETAMINOPHEN 325MG TABLET PO PRN ×2 (11:44→20:57)
[2023-01-13] MEDS: GABAPENTIN 100MG CAPSULE PO SCH (20:56)
[2023-01-13] MEDS: EPOETIN ALFA 4000UNITS/ML VIAL SUBCUT SCH (20:56)
[2023-01-14] VITALS (11 sets, daily range): BP systolic 111–141; BP diastolic 50–70; PULSE 66–84; RESP 15–20; TEMP 97.1–98.2
[2023-01-14] MEDS: BLOOD SUGAR DIAGNOSTIC STRIP TEST SCH ×2 (05:20→16:55)
[2023-01-14] MEDS: INSULIN LISPRO 100 UNITS/ML SUBCUT SCH ×2 (05:20→16:59)
[2023-01-14 08:08] LABS: QFT MITOGEN VALUE 4.66 IU/mL (.); QFT TB GOLD PLUS Negative (Negative); QFT TB1 AG VALUE 0.13 IU/mL (.); QFT TB2 AG VALUE 0.12 IU/mL (.)
[2023-01-14] MEDS: FOLIC ACID/VITAMIN B COMP W-C TABLET PO SCH (08:53)
[2023-01-14] MEDS: ZINC SULFATE 220 MG ( 50 ) CAPSULE PO SCH (08:53)
[2023-01-14] MEDS: LINEZOLID 600MG TABLET PO SCH ×2 (08:53→21:26)
[2023-01-14] MEDS: ASPIRIN 81MG TABLET PO SCH (08:53)
[2023-01-14] MEDS: ASCORBIC ACID 250 MG TABLET PO SCH (08:54)
[2023-01-14] MEDS: ACETAMINOPHEN 325MG TABLET PO PRN ×2 (08:59→22:03)
[2023-01-14] MEDS: INSULIN GLARGINE 100 UNITS/ML SUBCUT SCH (10:00)
[2023-01-14] MEDS: CEPHALEXIN 250MG CAPSULE PO SCH ×2 (11:30→22:43)
[2023-01-14] MEDS: FLUCONAZOLE 100MG TABLET PO SCH (11:35)
[2023-01-14] MEDS: FAMOTIDINE 20MG TABLET PO SCH (21:26)
[2023-01-14] MEDS: GABAPENTIN 100MG CAPSULE PO SCH (21:27)
[2023-01-15] MEDS: NYSTATIN POWDER 15GM TOP SCH (00:23)
[2023-01-15 08:00] VITALS: BP 121/50; PULSE 75; RESP 19; TEMP 97.1
[2023-01-15] MEDS: INSULIN LISPRO 100 UNITS/ML SUBCUT SCH (08:00)
[2023-01-15] MEDS: BLOOD SUGAR DIAGNOSTIC STRIP TEST SCH (08:21)
[2023-01-15] MEDS: ZINC SULFATE 220 MG ( 50 ) CAPSULE PO SCH (09:47)
[2023-01-15] MEDS: ASCORBIC ACID 250 MG TABLET PO SCH (09:47)
[2023-01-15] MEDS: ASPIRIN 81MG TABLET PO SCH (09:47)
[2023-01-15] MEDS: LINEZOLID 600MG TABLET PO SCH (09:47)
[2023-01-15] MEDS: FOLIC ACID/VITAMIN B COMP W-C TABLET PO SCH (09:47)
[2023-01-15] MEDS ORDERED: INSULIN GLARGINE 100 UNITS/ML SUBCUT SCH (10:00)
[2023-01-15] MEDS: ACETAMINOPHEN 325MG TABLET PO PRN (10:50)
[2023-01-15] MEDS: FLUCONAZOLE 100MG TABLET PO SCH (10:50)
[2023-01-15 11:43] VITALS: BP 121/50; PULSE 75; TEMP 97.1; O2SAT 100
[2023-01-15] MEDS ORDERED: FLUC100T42 MT (11:46)
[2023-01-15] MEDS ORDERED: LINE600T14 MT (11:46)
[2023-01-15] MEDS ORDERED: CEPH500T MT (11:46)
[2023-01-15] MEDS: CEPHALEXIN 250MG CAPSULE PO SCH (12:17)
== END 2023-01-15 13:45 | disposition home or self-care (01) | DRG 637 ==
PROVIDERS: ADMIT Psychiatry & Neurology Neurology; ATTEND Internal Medicine Pulmonary Disease
PROC: 5A1D70Z Performance of Urinary Filtration, Intermittent, Less than 6 Hours Per Day (ICD-10-PCS; principal; 2022-12-26)
PROC: 5A1D70Z Performance of Urinary Filtration, Intermittent, Less than 6 Hours Per Day (ICD-10-PCS; 2022-12-28)
PROC: 5A1D70Z Performance of Urinary Filtration, Intermittent, Less than 6 Hours Per Day (ICD-10-PCS; 2022-12-30)
PROC: 5A1D70Z Performance of Urinary Filtration, Intermittent, Less than 6 Hours Per Day (ICD-10-PCS; 2023-01-01)
PROC: 5A1D70Z Performance of Urinary Filtration, Intermittent, Less than 6 Hours Per Day (ICD-10-PCS; 2023-01-04)
PROC: 5A1D70Z Performance of Urinary Filtration, Intermittent, Less than 6 Hours Per Day (ICD-10-PCS; 2023-01-06)
PROC: 5A1D70Z Performance of Urinary Filtration, Intermittent, Less than 6 Hours Per Day (ICD-10-PCS; 2023-01-08)
PROC: 5A1D70Z Performance of Urinary Filtration, Intermittent, Less than 6 Hours Per Day (ICD-10-PCS; 2023-01-11)
PROC: 5A1D70Z Performance of Urinary Filtration, Intermittent, Less than 6 Hours Per Day (ICD-10-PCS; 2023-01-13)
PROC: 5A1D70Z Performance of Urinary Filtration, Intermittent, Less than 6 Hours Per Day (ICD-10-PCS; 2023-01-14)
DX: E11.69 Type 2 diabetes mellitus with other specified complication (principal); E43 Unspecified severe protein-calorie malnutrition; R65.21 Severe sepsis with septic shock; E87.1 Hypo-osmolality and hyponatremia; I13.2 Hypertensive heart and chronic kidney disease with heart failure and with stage 5 chronic kidney disease, or end stage renal disease; I42.9 Cardiomyopathy, unspecified; L02.416 Cutaneous abscess of left lower limb; L02.612 Cutaneous abscess of left foot; M86.8X7 Other osteomyelitis, ankle and foot; E11.621 Type 2 diabetes mellitus with foot ulcer; N18.6 End stage renal disease; E11.51 Type 2 diabetes mellitus with diabetic peripheral angiopathy without gangrene; I50.9 Heart failure, unspecified; E11.22 Type 2 diabetes mellitus with diabetic chronic kidney disease; R19.7 Diarrhea, unspecified; E78.5 Hyperlipidemia, unspecified; E87.5 Hyperkalemia; G54.6 Phantom limb syndrome with pain; I27.20 Pulmonary hypertension, unspecified; I25.10 Atherosclerotic heart disease of native coronary artery without angina pectoris; I08.2 Rheumatic disorders of both aortic and tricuspid valves; K74.60 Unspecified cirrhosis of liver; R13.10 Dysphagia, unspecified; E11.21 Type 2 diabetes mellitus with diabetic nephropathy; D50.0 Iron deficiency anemia secondary to blood loss (chronic); F09 Unspecified mental disorder due to known physiological condition; F32.A Depression, unspecified; M79.89 Other specified soft tissue disorders; L89.159 Pressure ulcer of sacral region, unspecified stage; D53.9 Nutritional anemia, unspecified; B96.1 Klebsiella pneumoniae [K. pneumoniae] as the cause of diseases classified elsewhere; R56.9 Unspecified convulsions; K21.9 Gastro-esophageal reflux disease without esophagitis; Z79.02 Long term (current) use of antithrombotics/antiplatelets; Z79.84 Long term (current) use of oral hypoglycemic drugs; I25.2 Old myocardial infarction; Z89.512 Acquired absence of left leg below knee; Z82.49 Family history of ischemic heart disease and other diseases of the circulatory system; Z95.5 Presence of coronary angioplasty implant and graft; Z89.612 Acquired absence of left leg above knee; Z99.2 Dependence on renal dialysis; Z68.26 Body mass index [BMI] 26.0-26.9, adult; Z91.81 History of falling; Z79.899 Other long term (current) drug therapy; Z79.82 Long term (current) use of aspirin; Z79.4 Long term (current) use of insulin
CPT/HCPCS: 36415; 71045; 73552; 80048; 80053; 82962; 83036; 83735; 84100; 84145; 85025; 86480; 86705; 86706; 86709; 86803; 87070; 87077; 87186; 87340; 87426; 90935; 92523; 92610; 93970; 97110; 97112; 97162; 97166; 97530; 97535; 97542; A6261; J0885; J1815; J2405; J3370